=== PATIENT | male | born 1950 | race Caucasian/White ===

== ENCOUNTER 2023-05-17 15:54 | Emergency (ER) | payer MEDICARE, OTHER, SELFPAY ==
--- NOTE | 2023-05-17 | DI.RAD_ITS ---
Exam(s) XR THUMB RT EXAM: XR THUMB RT CLINICAL HISTORY: table saw avulsion. TECHNIQUE: 2D digital imaging was performed of the right finger. Three views were obtained. PA/AP, oblique, and lateral views were obtained. COMPARISON: No exams were available for comparison FINDINGS: BONES: On the lateral view there is a cortical defect at the volar aspect of the proximal metaphysis of the distal phalanx of the thumb. No displaced fracture fragment is seen. No bony destructive les ion is seen. JOINTS: No dislocation present. Mild degenerative changes are present. SOFT TISSUE: There is soft tissue swelling. IMPRESSION: There is a cortical defect at the volar aspect of the proximal metaphysis of the distal phalanx of th e thumb. This may represent a small cortical fracture. DATA REPOSITORY: RADIATION DOSE DELIVERED:
[2023-05-17 16:22] VITALS: BP 116/83; PULSE 70; RESP 18; TEMP 36.8; O2SAT 99
--- NOTE | 2023-05-17 17:01 | W.ED.GENAD ---
Discharge Plan Disposition Patient Disposition: Home Condition: Stable Discharge Details Clinical Impression: Avulsion of skin of right thumb, Open fracture of left thumb Primary Care Provider: None,None ED Provider: Phyllis Celestin Home Meds and New Rx's Prescriptions: New cephalexin 500 mg capsule 500 mg PO QID Qty: 20 0RF Discharge Instructions Instructions: Skin Avulsion (ED) Additional Instructions: keep dressing clean and dry until you are followed up by orthopedics Monitor for and report sign of infection immediately, including fever, redness, drainage, increase pain or concerns can use ibuprofen 600 mg 4 times daily for food if needed for pain, can add acetaminophen 650 mg 4 times daily for breakthrough pain. elevate above level of the heart to help reduce throbbing. take antibiotics as directed. your tetanus has been updated. Referrals: Iglesia Dave MD [ [id number] STAFF PHYSICIAN] - (call friday for follow up appointment early next week. ) Discharge Data Discharge Date/Time-TO BE ENTERED AT DEPARTURE: 05/17/23 18:03 Medical Decision Making Patient comes in with isolated right thumb avulsion on tablesaw. Unknown tetanus status so tetanus will be updated. Will obtain x-ray to evaluate for bony involvement. Nursing to cleanse wound per protocol. X-ray does show a possible bony injury/avulsion. Will prescribe cephalexin. There has been no further bleeding. Able to approximate approximately 1 cm of proximal wound with 2 Steri-Strips the rest of the remaining avulsed area does not approximate. This is approximately 3 cm's. Xeroform and tube gauze applied. Patient will be referred to orthopedics for further monitoring and recommendations. Medical Records Medical records reviewed: Yes I reviewed the patient's medical records. Imaging Data Radiologic Study: Imaging: X-Ray Radiologist's impression: PROCEDURE INFORMATION: Exam: XR Right Finger(s) Exam date and time: 05/17/2023 17:16 Age: 73 years old Clinical indication: Injury or trauma; Other: Table saw injury TECHNIQUE: Imaging protocol: Radiologic exam of the right fingers. Views: Minimum 2 views. COMPARISON: No relevant prior studies available. FINDINGS: Bones/joints: No displaced fracture. 3 mm cortical defect, volar 1st distal phalangeal non intra-articular base. No avulsion fragment is seen however. Mild 1st MCP and 1st interphalangeal degenerative changes. Soft tissues: Digital soft tissue swelling. IMPRESSION: 1. ? No displaced fracture. 2. ? 3 mm cortical defect, volar 1st distal phalangeal non intra-articular base.? This could be a small cortical fracture in the setting of trauma.? The location is unusual for erosive disease. Dictated and Authenticated by: Franny Cohen MD. Ordering:RALPH Ferguson MD [facility] General Mode of arrival: ambulatory. Date/Time Provider Initiated Documentation: 05/17/23 16:27. Limitations to Documentation: no limitations. Information obtained by: patient. HPI Narrative: This is a [id number] male who avulsed the lateral aspect of his right thumb on a table saw prior to arrival. Unknown tetanus status. No other injury. He is not on a blood thinner. Bleeding is controlled with a pressure dressing. Related Data Home Medications Medication Instructions Recorded Confirmed cephalexin 500 mg capsule 500 mg PO QID #20 caps 05/17/23 Previous Rx's Medication Instructions Recorded cephalexin 500 mg capsule 500 mg PO QID #20 caps 05/17/23 Allergies Allergy/AdvReac Type Severity Reaction Status Date / Time Sulfa (Sulfonamide Allergy Intermediate Swelling/Ed Unverified 05/17/23 16:24 Antibiotics) day General Stated Complaint: Laceration CONRAD: 4 Review of Systems All systems reviewed & are unremarkable except as noted in HPI and below PFSH All Active Problems (Updated 05/17/23 @ 17:58 by Phyllis Celestin, GENETICS TEACHER) Avulsion of skin of right thumb (Acute) Open fracture of left thumb (Acute) Social History Smoking risk assessment performed?: No Exam Const General: cooperative, healthy appearing and comfortable Nutritional Appearance: average body habitus Orientation: alert, awake and oriented x3 HENID Head: normal to inspection Cardio Rate: regular rate Rhythm: regular rhythm and other (Radial pulse) Skin Trauma: other (Avulsion/partial amputation of lateral aspect of right thumb) Other: Bandage intact with no further bleeding noted Neuro General: patient alert, patient awake and patient oriented x3 Extrem Left upper extremity: hand Hand/finger images: 1. avulsion/amputation Course Vital Signs Vital signs: Vital Signs Temperature 36.8 C 05/17/23 16:22 Pulse 70 05/17/23 16:22 Respiratory Rate 18 05/17/23 16:22 Blood Pressure 116/83 05/17/23 16:22 Pulse Oximetry 99 05/17/23 16:22 Temperature 36.8 C 05/17/23 16:22 Pulse 70 05/17/23 16:22 Respiratory Rate 18 05/17/23 16:22 Respiratory Effort Normal 05/17/23 16:26 Blood Pressure 116/83 05/17/23 16:22 Blood Pressure Position Sitting 05/17/23 16:22 Pulse Oximetry 99 05/17/23 16:22 Oxygen Delivery Method Room Air 05/17/23 16:22 Oxygen Flow Rate 0 05/17/23 16:22 Pain Level 5 05/17/23 16:22
--- NOTE | 2023-05-17 17:53 | DI.VRAD_ITS ---
PROCEDURE INFORMATION: Exam: XR Right Finger(s) Exam date and time: 05/17/2023 17:16 Age: 73 years old Clinical indication: Injury or trauma; Other: Table saw injury TECHNIQUE: Imaging protocol: Radiologic exam of the right fingers. Views: Minimum 2 views. COMPARISON: No relevant prior studies available. FINDINGS: Bones/joints: No displaced fracture. 3 mm cortical defect, volar 1st distal phalangeal non intra-articular base. No avulsion fragment is seen however. Mild 1st MCP and 1st interphalangeal degenerative changes. Soft tissues: Digital soft tissue swelling. IMPRESSION: 1. No displaced fracture. 2. 3 mm cortical defect, volar 1st distal phalangeal non intra-articular base. This could be a small cortical fracture in the setting of trauma. The location is unusual for erosive disease. Dictated and Authenticated by: Franny Cohen MD. Ordering:RALPH Ferguson MD
== END 2023-05-17 18:03 | disposition home or self-care (01) ==
PROVIDERS: Emergency Provider Nurse Practitioner Acute Care
DX: S62.521B Displaced fracture of distal phalanx of right thumb, initial encounter for open fracture (principal); W27.0XXA Contact with workbench tool, initial encounter; Z23 Encounter for immunization
CPT/HCPCS: 90471; 99284; 73140; 99283

== ENCOUNTER → 2023-05-26 08:45 | Outpatient (BNVA) | payer MEDICARE, SELFPAY | DX: S61.001D Unspecified open wound of right thumb without damage to nail, subsequent encounter (principal); W27.0XXD Contact with workbench tool, subsequent encounter | CPT/HCPCS: 99213 ==